=== PATIENT | female | born 1955 | race Caucasian/White ===

== ENCOUNTER 2022-04-23 10:14 | Emergency (ER) | payer OTHER ==
[2022-04-23 10:30] VITALS: BP 159/64; PULSE 66; RESP 20; TEMP 97.7; BMI 24.0
[2022-04-23] MEDS ORDERED: SODIUM CHLORIDE 500 ML IV STA (11:51)
[2022-04-23 13:34] LABS: BASO % 0.5 % (0-2.0); EOS % 0.1 % (0-4.5); HEMATOCRIT 39.4 % (32.4-45.2); HEMOGLOBIN 12.9 GM/dL (10.7-15.3); LYMPH % 8.4 % (8-40); MCH 28.6 pg (25.7-33.7); MCHC 32.6 g/dl (32.0-36.0); MEAN CELL VOLUME 87.7 fl (80-96); MEAN PLT VOLUME 8.6 fl (7.5-11.1); MONO % 1.5 % (3.8-10.2); NEUT % 89.5 % (42.8-82.8); PLATELET COUNT 334 10^3/uL (134-434); RBC 4.49 M/mm3 (3.60-5.2); RDW 13.6 % (11.6-15.6); WHITE BLOOD COUNT 10.8 K/mm3 (4.0-10.0)
[2022-04-23 14:24] LABS: CALCIUM 9.2 mg/dL (8.5-10.1)
[2022-04-23 14:25] LABS: BLOOD UREA NITROGEN 16.6 mg/dL (7-18)
[2022-04-23 14:27] LABS: CREATININE 0.7 mg/dL (0.55-1.3)
[2022-04-23 14:29] LABS: BILIRUBIN,TOTAL 0.3 mg/dL (0.2-1); TOT PROT 7.5 g/dl (6.4-8.2)
== END 2022-04-23 15:33 | disposition home or self-care (01) ==
LOC: JER 10:14
PROC: 3E0337Z Introduction of Electrolytic and Water Balance Substance into Peripheral Vein, Percutaneous Approach (ICD-10-PCS; principal; 2022-04-23)
DX: R42 Dizziness and giddiness (principal)
CPT/HCPCS: 36415; 70450-TC; 80053; 85025; 93005; 93010; 99285-25